=== PATIENT | male | born 1950 | race Caucasian/White ===

== ENCOUNTER → 2017-05-14 15:06 | Outpatient (CLI) | payer OTHER, SELFPAY ==
--- NOTE | 2017-05-14 15:17 | RAD_ITS ---
STUDY: X-RAY - RIGHT HAND REASON FOR EXAM: Male, 66 years old. Rheumatoid arthritis. TECHNIQUE: 3 view(s) of the hand. COMPARISON: None. FINDINGS: Normal radiocarpal articulation. Normal distal radioulnar joint. Normal visualized carpal bones. 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 Normal second through fifth carpometacarpal joints. Normal metacarpi. There is degenerative arthrosis of the metacarpophalangeal (MCP) joints. There is degenerative arthrosis of the interphalangeal joint of the thumb with articular joint space narrowing. Normal proximal and distal phalanges of the thumb. There is arthrosis of the third metacarpophalangeal joint with narrowing and mild lateral subluxation. There is mild diffuse articular joint space narrowing of the proximal and distal interphalangeal joints of the second through fifth fingers, but without erosive changes or periarticular soft tissue swelling. Normal phalanges of the second through fifth fingers. There is soft tissue swelling about the metacarpophalangeal joints. RAD/Hand Min 3 Views IMPRESSION: There are mild arthritic changes of the right hand suggestive of rheumatoid arthritis. Electronically Signed: Hernandez Bueno DO at 18:10 EDT Tel [phone], Service support ,
--- NOTE | 2017-05-14 15:18 | RAD_ITS ---
STUDY: X-RAY - LEFT HAND REASON FOR EXAM: Male, 66 years old. Rheumatoid arthritis TECHNIQUE: 3 view(s) of the hand. COMPARISON: Right hand, May 15, 2017. FINDINGS: Normal radiocarpal articulation. Normal distal radioulnar joint. Normal visualized carpal bones. 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 Normal second through fifth carpometacarpal joints. Normal metacarpi. There is degenerative arthrosis of the metacarpophalangeal (MCP) joints. There is degenerative arthrosis of the interphalangeal joint of the thumb with articular joint space narrowing. Normal proximal and distal phalanges of the thumb. There is arthrosis of the second and third metacarpophalangeal joints with joint space narrowing. There is slight lateral subluxation of the third metacarpophalangeal joint. There is minimal articular joint space narrowing of the proximal and distal interphalangeal joints of the second through fifth fingers, but without erosive changes or periarticular soft tissue swelling. Normal phalanges of the second through fifth fingers. No soft tissue swelling about the metacarpophalangeal joints. RAD/Hand Min 3 Views IMPRESSION: Findings most suggestive of rheumatoid arthritis. Electronically Signed: Hernandez uBeno DO at 18:10 EDT Tel [phone], Service support ,
== END ==
PROVIDERS: Family Provider Family Medicine; PCP Family Medicine; Visit Provider Internal Medicine Rheumatology
DX: M06.89 Other specified rheumatoid arthritis, multiple sites (principal)
CPT/HCPCS: 73130